=== PATIENT | male | born 1950 | race Caucasian/White ===

== ENCOUNTER → 2020-04-10 11:06 | Outpatient (CLI) | payer MEDICARE, SELFPAY ==
[2020-04-13 08:36] LABS: COVID19 Sendout Not Detected (Not Detect)
== END ==
PROVIDERS: Visit Provider Physician Assistant
DX: Z01.812 Encounter for preprocedural laboratory examination (principal)
CPT/HCPCS: 87635

== ENCOUNTER → 2024-08-06 09:10 | Outpatient (CLI) | payer MEDICARE, SELFPAY ==
--- NOTE | 2024-08-06 13:10 | ST.SWALLOW ---
Visit Care Team Role Provider Type Stephanie Grant MD Attending Provider Non-Staff Primary Care Provider Referring Provider Specialty: Internal Medicine Address: [address] [place] [address], [id number] Email: ST Modified Barium Swallow Study [employer] Modified Barium Swallow Study Start: 08/06/24 12:15 Freq: Status: Active Protocol: Document 08/06/24 12:16 LNK (Rec: 08/06/24 13:09 LNK [id number]) Modified Barium Swallow Study Total Time Visit Start Time 10:00 Visit Stop Time 14:50 Total Visit Minutes [address] Stephanie Grant Reason for Referral dysphagia Setting Setting Outpatient Care Patient Information Identification Type Name,Date of Patient History Pt seen for a Modified Barium Swallow Study due to c/o increased difficulty swallowing. Pt was accompanied by his , who provided background information. 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 According to pt's , he has had numerous strokes over the past 3 years. According to pt's , about 1 year ago, a stroke occurred that negatively effected his throat and mouth muscles. Additionally, she reported that 3 weeks ago, she suspects he had another stroke resulting in progressively worsening speech intelligibility and swallow ability. Subjective Observations Pt was seated in the fluoroscopy chair with directions and procedures described for him. He indicated he understood and agreed to proceed. Patient Positioning Position View Lat-A/P Imaging Lateral View Textures Administered Trials Presented Thin Liquid via Spoon (IDDSI 0 ),Thin Liquid via Cup (IDDSI 0 ),Extremely Thick Liquid via Spoon (IDDSI 4),Regular (IDDSI 7) Barium Tablet Yes The IDDSI Framework Protocol: IDDSI.1 Oral Impairment Source: The Modified Barium Swallow Impairment Profile (MBSImP??) Lip Closure Interlabial escape; no progression to anterior lip Tongue Control During Bolus Hold Posterior escape of less than half of bolus Bolus Preparation/Mastication Timely & efficient chewing & mashing Bolus Transport/Lingual Motion Delayed initiation of tongue motion Oral Residue Residue collection on oral structures Location Tongue Initiation of Pharyngeal Swallow Bolus head at posterior angle of ramus (first hyoid excursion) Additional Oral Impairment Observations *OME and DKS were observed to be slow with discoordination of tongue movement and reduced labial ROM. Slight right side facial assymetry noted *Dentition natural and in good hygiene; some missing teeth observed *Mastication observed with rotary chew pattern. *Good bolus formation, control and AP transition. Pharyngeal Impairment Source: The Modified Barium Swallow Impairment Profile (MBSImP??) Soft Palate Elevation No bolus between soft palate & pharyngeal wall Laryngeal Elevation Comp.sup.move.thyroid cart.w/ comp.approx.arytenoids to epiglot petiole Anterior Hyoid Excursion Partial anterior movement Epiglottic Movement No inversion Laryngeal Vestibular Closure Complete; no air/contrast in laryngeal vestibule Pharyngeal Stripping Wave Present - diminished Pharyngoesophageal Segment Opening Complete distention & complete duration; no obstruction of flow Tongue Base Retraction Narrow column of contrast/air betwn tongue base & post. pharyngeal wall Pharyngeal Residue Collection of residue within/ on pharyngeal structures Location Valleculae Additional Pharyngeal Impairment *Reduced hyoid movement Observations *Inconsistent epiglottal inversion - no inversion observed with small boluses; complete inversion with larger /heavier boluses *Increased pooling of contrast in valeculla with semi-solid and solid trials. Subsequent swallows cued with partial efficacy in clearing *Flash penetration without residual remaining with consecutive swallows A/P View Textures Administered Trials Presented Thin Liquid via Cup (IDDSI 0) The IDDSI Framework Protocol: IDDSI.1 A/P View Observations Pharyngeal Contraction Complete Esophageal Clearance Upright Position Complete clearance; esophageal coating Vocal Fold Function Good Esophageal Function WFL Additional A-P Observations *Thin barium was observed to clear the esophagus in a timely manner *Barium tablet was observed to stop in the valeculla with pt stating the tablet had been swallowed *Additional sips of water cleared the barium tablet to the esophagus and stomach Clinical Impressions Dysphagia Type Pharyngeal Findings Pt presented with pharyngeal weakness characterized by weak tongue base retraction, reduced hyoid movement, inconsistent epiglottal inversion and valecullar pooling. ST is recommended to target base of tongue exercises as well as safe swallow strategies to reduce pt's risk for aspiration. Rehabilitation Potential Good Patient Appropriate for Therapy Yes Recommendations Diet Liquids Order Thin (IDDSI 0) Diet Order Regular (IDDSI 7) Medication Recommendation Whole in Carrier Aspiration Precautions Recommended Precautions Upright at 90 Degrees, Alternate Liquids/Solids, Frequent Rest Periods,Small Bites/Sips,Double Swallow Additional Precautions Reduce rate of intake Treatment Plan Therapy Recommendations Outpatient Speech Therapy,Oral Motor Exercises,Base of Tongue Exercises Therapy Strategy Recommendations Reclined Position,Double Swallow,Liquids from Cup,Small Bites and Sips,Alternate Liquids/Solids
== END ==
PROVIDERS: PCP Internal Medicine; Referring Provider Internal Medicine; Visit Provider Internal Medicine
DX: I63.9 Cerebral infarction, unspecified (principal); R13.10 Dysphagia, unspecified
CPT/HCPCS: 74230; 92611